=== PATIENT | female | born 1950 | race Caucasian/White ===

== ENCOUNTER 2023-11-10 11:03 | Emergency (ER) | payer MEDICARE ==
[2023-11-10] MEDS ORDERED: HYDROcodone/Acetaminophen 5/325 mg Tablet ONE (12:29)
== END 2023-11-10 13:52 | disposition home or self-care (01) ==
LOC: ERS 11:03
DX: S82.001A Unspecified fracture of right patella, initial encounter for closed fracture (principal); S62.111A Displaced fracture of triquetrum [cuneiform] bone, right wrist, initial encounter for closed fracture; W23.1XXA Caught, crushed, jammed, or pinched between stationary objects, initial encounter; Y93.01 Activity, walking, marching and hiking
CPT/HCPCS: 29125